=== PATIENT | female | born 1945 | race Caucasian/White ===

== ENCOUNTER 2019-04-29 13:58 | Inpatient (IN) ==
[2019-04-29 14:49] LABS: Basophils % 0.1 % (0.0-0.8); Eosinophils % 0.2 % (0.00-10.9); Hematocrit 35.1 VOL% (35.7-47.0); Hemoglobin 11.7 GM/DL (12.0-16.0); Immature Granulocytes % 0.8 %; Immature Granulocytes Absolute 0.08 #; Lymphocytes % 9.5 % (21.3-54.2); Mean Corpuscular HGB Conc 33.3 GM/DL (32-36); Mean Corpuscular Volume 86.7 FL (87-102); Mean Platelet Volume 9.9 FL (9.6-12.0); Monocytes % 6.7 % (1.7-12.7); Neutrophils % 82.7 % (38.7-73.9); Platelet Count 328 T/CUMM (130-400); Red Blood Count 4.05 MC/CUMM (3.8-5.5); Red Cell Distribution Width 13.2 % (9.3-17.3)
[2019-04-29 15:01] LABS: INR 0.9; PT Patient Result 9.8 SECS (9.6-12.2)
[2019-04-29 15:14] LABS: Bilirubin,Total 0.8 MG/DL (0.2-1.0); CKMB % 1.4 %; Calcium 10.1 MG/DL (8.5-10.1); Osmolality,Calculated 255.4 MOS/KG (273-304); Total Protein 7.4 G/DL (6.4-8.3); Troponin I 0.023 NG/ML (0.00-0.045)
[2019-04-29] MEDS ORDERED: FUROSEMIDE 40 MG/4 ML VIAL ONE (16:24)
[2019-04-29] MEDS ORDERED: FUROSEMIDE 20 MG/2 ML VIAL ONE (16:24)
[2019-04-29] MEDS ORDERED: LORazepam 2 MG/1 ML VIAL ONE (16:25)
[2019-04-29] MEDS ORDERED: LORazepam 2 MG/1 ML VIAL IV STA (17:08)
[2019-04-29] MEDS ORDERED: FUROSEMIDE 40 MG/4 ML VIAL IV STA (17:09)
[2019-04-29] MEDS: busPIRone 10 MG TABLET PO SCH (20:59)
[2019-04-29] MEDS: SIMVASTATIN 40 MG TABLET PO SCH (20:59)
[2019-04-29] MEDS: traZODone 50 MG TABLET PO SCH (20:59)
[2019-04-29] MEDS: PANTOPRAZOLE 40 MG TABLET PO SCH (21:00)
[2019-04-29] MEDS: MIRTAZAPINE 30 MG TABLET PO SCH (21:00)
[2019-04-29] MEDS: ENOXAPARIN 30 MG/0.3 ML SYRINGE SUBCUT SCH (21:02)
[2019-04-29] MEDS: POTASSIUM CHLORIDE 20 MEQ TABLET PO SCH (21:04)
[2019-04-30] MEDS: POTASSIUM CHLORIDE 20 MEQ TABLET PO SCH ×2 (00:25→04:39)
[2019-04-30 03:19] LABS: Apearance,Urine Slightly Hazy (Clear); Bacteria,Urine Occasional /HPF (Few); Bilirubin,Urine Negative (Negative); Blood, Urine Small mg/dL (Negative); Glucose,Urine (UA) Negative (Negative); Hyaline Casts,Urine 40 /LPF (0-3); Ketones,Urine Negative (Negative); Mucus,Urine Occasional /LPF (Occasional); Nitrite,Urine Negative (Negative); Protein,Urine Negative; RBC,Urine 2 /HPF (0-4); Squamous Epithelial Cell,Urine Occasional /HPF (0-10); Urine Color Yellow (Yellow); Urine Specific Gravity 1.009 (1.001-1.035); Urine Urobilinogen < 2.0 EU/DL (0.2-1.0); WBC,Urine 42 /HPF (0-6)
[2019-04-30 05:14] LABS: Calcium 9.4 MG/DL (8.5-10.1); Osmolality,Calculated 257.4 MOS/KG (273-304); Troponin I 0.031 NG/ML (0.00-0.045)
[2019-04-30] MEDS: LEVOTHYROXINE 100 MCG TABLET PO SCH (06:27)
[2019-04-30] MEDS ORDERED: ASPIRIN EC 81 MG TABLET PO SCH (09:00)
[2019-04-30] MEDS ORDERED: SERTRALINE 100 MG TABLET PO SCH (09:00)
[2019-04-30] MEDS ORDERED: LORazepam 2 MG/1 ML VIAL IV ONE (09:20)
[2019-04-30] MEDS ORDERED: SODIUM CHLORIDE 0.9% 1,000 ML IV SCH (09:30)
[2019-04-30] MEDS: CYANOCOBALAMIN 500 MCG TABLET PO SCH (09:38)
[2019-04-30] MEDS: PANTOPRAZOLE 40 MG TABLET PO SCH ×2 (09:38→21:02)
[2019-04-30] MEDS: CHOLECALCIFEROL 1,000 UNIT TABLET PO SCH (09:38)
[2019-04-30] MEDS: busPIRone 10 MG TABLET PO SCH ×3 (09:38→21:00)
[2019-04-30] MEDS: DILTIAZEM CD 240 MG CAPSULE PO SCH (09:39)
[2019-04-30] MEDS: MAGNESIUM OXIDE 400 MG TABLET PO SCH (09:39)
[2019-04-30] MEDS: clonazePAM 0.5 MG TABLET PO SCH ×2 (09:47→21:01)
[2019-04-30] MEDS ORDERED: DEXTROSE 50% 25 GM/50 ML VIAL IV PRN (09:53)
[2019-04-30] MEDS ORDERED: GLUCAGON 1 MG VIAL IM PRN (09:53)
[2019-04-30 12:10] LABS: ABG Base Excess -1.4 MMOL/L (-2.5-2.5); ABG HCO3 20.7 MMOL/L (20-26); ABG Oxygen Saturation 98.8 % (95-100); ABG PCO2 26.9 MM HG (35-48); ABG PH 7.504 (7.35-7.45); ABG PO2 185.5 MM HG (80-95); ABG TCO2 21.5 MMOL/L (23-27)
[2019-04-30] MEDS: ASPIRIN EC 325 MG TABLET PO SCH (13:40)
[2019-04-30] MEDS: INSULIN LISPRO 100 UNIT/ML SUBCUT SCH ×3 (13:42→21:02)
[2019-04-30] MEDS: ALBUTEROL/IPRATROPIUM 3 ML NEB RESP TX SCH ×2 (14:19→19:50)
[2019-04-30] MEDS: traZODone 50 MG TABLET PO SCH (21:00)
[2019-04-30] MEDS: ENOXAPARIN 30 MG/0.3 ML SYRINGE SUBCUT SCH (21:00)
[2019-04-30] MEDS: MIRTAZAPINE 30 MG TABLET PO SCH (21:02)
[2019-04-30] MEDS: SIMVASTATIN 40 MG TABLET PO SCH (21:02)
[2019-05-01] MEDS: ALBUTEROL/IPRATROPIUM 3 ML NEB RESP TX SCH ×4 (00:05→20:03)
[2019-05-01 05:27] LABS: Basophils % 0.3 % (0.0-0.8); Eosinophils # 0.1 10*3/uL (0.0-0.87); Eosinophils % 1.5 % (0.00-10.9); Hematocrit 31.8 VOL% (35.7-47.0); Hemoglobin 10.4 GM/DL (12.0-16.0); Immature Granulocytes % 0.8 %; Immature Granulocytes Absolute 0.06 #; Lymphocytes # 1.4 10*3/uL (1.4-4.0); Mean Corpuscular HGB Conc 32.7 GM/DL (32-36); Mean Corpuscular Volume 87.8 FL (87-102); Monocytes % 11.8 % (1.7-12.7); Neutrophils % 67.6 % (38.7-73.9); Platelet Count 278 T/CUMM (130-400); Red Blood Count 3.62 MC/CUMM (3.8-5.5); Red Cell Distribution Width 13.4 % (9.3-17.3); White Blood Count 7.9 T/CUMM (4-12)
[2019-05-01 05:52] LABS: Calcium 9.4 MG/DL (8.5-10.1); Osmolality,Calculated 265.1 MOS/KG (273-304)
[2019-05-01] MEDS: LEVOTHYROXINE 100 MCG TABLET PO SCH (06:00)
[2019-05-01] MEDS: CYANOCOBALAMIN 500 MCG TABLET PO SCH (09:04)
[2019-05-01] MEDS: ASPIRIN EC 325 MG TABLET PO SCH (09:04)
[2019-05-01] MEDS: busPIRone 10 MG TABLET PO SCH ×3 (09:04→20:39)
[2019-05-01] MEDS: PANTOPRAZOLE 40 MG TABLET PO SCH ×2 (09:04→20:40)
[2019-05-01] MEDS: CHOLECALCIFEROL 1,000 UNIT TABLET PO SCH (09:04)
[2019-05-01] MEDS: MAGNESIUM OXIDE 400 MG TABLET PO SCH (09:04)
[2019-05-01] MEDS: clonazePAM 0.5 MG TABLET PO SCH ×2 (09:04→20:39)
[2019-05-01] MEDS: DILTIAZEM CD 240 MG CAPSULE PO SCH (09:04)
[2019-05-01] MEDS: SODIUM CHLORIDE 0.9% 1,000 ML IV SCH ×2 (11:13→20:44)
[2019-05-01] MEDS: MIRTAZAPINE 30 MG TABLET PO SCH (20:39)
[2019-05-01] MEDS: ENOXAPARIN 30 MG/0.3 ML SYRINGE SUBCUT SCH (20:39)
[2019-05-01] MEDS: traZODone 50 MG TABLET PO SCH (20:39)
[2019-05-01] MEDS: SIMVASTATIN 40 MG TABLET PO SCH (20:40)
[2019-05-01] MEDS ORDERED: OXYMETAZOLINE 0.05% NASAL SPRAY 15 ML BOTTLE BOTH NARES PRN (20:56)
[2019-05-02] MEDS: ALBUTEROL/IPRATROPIUM 3 ML NEB RESP TX SCH ×2 (01:01→07:30)
[2019-05-02] MEDS: SODIUM CHLORIDE 0.9% 1,000 ML IV SCH (05:52)
[2019-05-02 06:09] LABS: Basophils % 0.5 % (0.0-0.8); Eosinophils # 0.3 10*3/uL (0.0-0.87); Eosinophils % 5.2 % (0.00-10.9); Hematocrit 29.6 VOL% (35.7-47.0); Hemoglobin 9.8 GM/DL (12.0-16.0); Immature Granulocytes % 0.8 %; Immature Granulocytes Absolute 0.05 #; Lymphocytes # 1.3 10*3/uL (1.4-4.0); Lymphocytes % 21.8 % (21.3-54.2); Mean Corpuscular HGB Conc 33.1 GM/DL (32-36); Mean Corpuscular Volume 89.7 FL (87-102); Mean Platelet Volume 10.8 FL (9.6-12.0); Monocytes % 13.1 % (1.7-12.7); Neutrophils % 58.6 % (38.7-73.9); Platelet Count 231 T/CUMM (130-400); Red Cell Distribution Width 13.6 % (9.3-17.3)
[2019-05-02] MEDS: LEVOTHYROXINE 100 MCG TABLET PO SCH (06:19)
[2019-05-02 06:36] LABS: Calcium 8.6 MG/DL (8.5-10.1); Osmolality,Calculated 272.4 MOS/KG (273-304)
[2019-05-02] MEDS: busPIRone 10 MG TABLET PO SCH (08:44)
[2019-05-02] MEDS: CHOLECALCIFEROL 1,000 UNIT TABLET PO SCH (08:44)
[2019-05-02] MEDS: MAGNESIUM OXIDE 400 MG TABLET PO SCH (08:44)
[2019-05-02] MEDS: ASPIRIN EC 325 MG TABLET PO SCH (08:44)
[2019-05-02] MEDS: clonazePAM 0.5 MG TABLET PO SCH (08:44)
[2019-05-02] MEDS: CYANOCOBALAMIN 500 MCG TABLET PO SCH (08:44)
[2019-05-02] MEDS: DILTIAZEM CD 240 MG CAPSULE PO SCH (08:45)
[2019-05-02] MEDS: PANTOPRAZOLE 40 MG TABLET PO SCH (08:45)
[2019-05-02 12:16] VITALS: BP 159/81
== END 2019-05-02 13:45 | disposition home or self-care (01) | DRG 880 ==
LOC: N.ED 13:58 → N.EDINP 17:18 → SUATTDRO 17:18 → N.EDINP 18:37 → N.5E 18:46
PROVIDERS: ADMIT Internal Medicine Cardiovascular Disease; ATTEND Internal Medicine

== ENCOUNTER 2020-06-04 18:38 | Inpatient (IN) ==
[2020-06-04] MEDS ORDERED: LACTATED RINGERS 500 ML IV ONE (19:38)
[2020-06-04 20:06] LABS: Basophils % 0.2 % (0.0-0.8); Hematocrit 33.1 VOL% (35.7-47.0); Immature Granulocytes % 0.6 %; Immature Granulocytes Absolute 0.08 #; Lymphocytes # 1.9 10*3/uL (1.4-4.0); Lymphocytes % 14.1 % (21.3-54.2); Mean Corpuscular HGB Conc 33.2 GM/DL (32-36); Mean Corpuscular Volume 91.9 FL (87-102); Mean Platelet Volume 10.8 FL (9.6-12.0); Monocytes % 5.7 % (1.7-12.7); Neutrophils % 79.4 % (38.7-73.9); Platelet Count 217 T/CUMM (130-400); Red Cell Distribution Width 12.9 % (9.3-17.3); White Blood Count 13.1 T/CUMM (4-12)
[2020-06-04 20:15] LABS: INR 1.1
[2020-06-04 20:26] LABS: Albumin 3.5 G/DL (3.4-5.0); Bilirubin,Total 0.6 MG/DL (0.2-1.0); Calcium 11.4 MG/DL (8.5-10.1); Osmolality,Calculated 295.5 MOS/KG (273-304); Thyroid Stimulating Hormone 0.755 uIU/ml (0.358-3.74); Total Protein 6.9 G/DL (6.4-8.3)
[2020-06-04 20:40] LABS: Bilirubin,Urine Negative (Negative); Blood, Urine Negative (Negative); Glucose,Urine (UA) Negative (Negative); Hyaline Casts,Urine 4 /LPF (0-3); Ketones,Urine Negative (Negative); Nitrite,Urine Negative (Negative); Protein,Urine Negative; RBC,Urine <1 /HPF (0-4); Squamous Epithelial Cell,Urine Occasional /HPF (0-10); Urine Appearance Slightly Hazy (Clear); Urine Color Yellow (Yellow); Urine Specific Gravity 1.019 (1.001-1.035); Urine Urobilinogen < 2.0 EU/DL (0.2-1.0); WBC,Urine 2 /HPF (0-6)
[2020-06-04] MEDS ORDERED: METOPROLOL TARTRATE 5 MG/5 ML VIAL IV STA (21:41)
[2020-06-04] MEDS ORDERED: DILTIAZEM 50 MG/10 ML VIAL IV STA (21:42)
[2020-06-04 22:35] LABS: ABG Base Excess 0.1 MMOL/L (-2.5-2.5); ABG HCO3 24.5 MMOL/L (20-26); ABG PCO2 25.7 MM HG (35-48); ABG PH 7.534 (7.35-7.45); ABG PO2 90.9 MM HG (80-95); ABG TCO2 19.5 MMOL/L (23-27); Allen Test Positive; Pt O2 Delivery Device Room Air
[2020-06-04] MEDS ORDERED: LORazepam 2 MG/1 ML VIAL IV STA (23:09)
[2020-06-04] MEDS ORDERED: NICOTINE 21 MG/24 HR PATCH TRANSDERM PRN (23:34)
[2020-06-04] MEDS ORDERED: diphenhydrAMINE CAP 25 MG CAPSULE PO PRN (23:34)
[2020-06-04] MEDS ORDERED: GLUCAGON 1 MG VIAL IM PRN (23:34)
[2020-06-04] MEDS ORDERED: ONDANSETRON 4 MG/2 ML VIAL IV PRN (23:34)
[2020-06-04] MEDS ORDERED: ACETAMINOPHEN 325 MG TABLET PO PRN (23:34)
[2020-06-04] MEDS ORDERED: DEXTROSE 50% 25 GM/50 ML VIAL IV PRN (23:34)
[2020-06-04] MEDS ORDERED: guaiFENesin/DM ER 600-30 MG TABLET PO PRN (23:34)
[2020-06-04] MEDS ORDERED: SODIUM CHLORIDE 0.9% 1,000 ML IV SCH (23:45)
[2020-06-05] MEDS: OLANZapine 10 MG VIAL IM PRN (00:52)
[2020-06-05] MEDS ORDERED: OLANZapine 10 MG VIAL IM ONE (04:25)
[2020-06-05] MEDS ORDERED: ZIPRASIDONE 20 MG/1 ML VIAL IM ONE (04:27)
[2020-06-05 05:25] LABS: Albumin 3.2 G/DL (3.4-5.0); Bilirubin,Total 0.4 MG/DL (0.2-1.0); Calcium 10.1 MG/DL (8.5-10.1); Osmolality,Calculated 300.1 MOS/KG (273-304); Total Protein 6.2 G/DL (6.4-8.3)
[2020-06-05] MEDS ORDERED: DILTIAZEM 50 MG/10 ML VIAL IV ONE (08:03)
[2020-06-05] MEDS ORDERED: DILTIAZEM 25 MG/5 ML VIAL IV ONE (08:03)
[2020-06-05] MEDS ORDERED: carvediloL 3.125 MG TABLET PO SCH (09:00)
[2020-06-05] MEDS ORDERED: HALOPERIDOL 5 MG/ML AMP IV STA (09:33)
[2020-06-05] MEDS ORDERED: LORazepam 2 MG/1 ML VIAL IV STA ×2 (09:34→10:41)
[2020-06-05] MEDS ORDERED: diphenhydrAMINE 50 MG/1 ML VIAL IV STA ×2 (09:34→10:41)
[2020-06-05] MEDS ORDERED: LORazepam 2 MG/1 ML VIAL ONE (09:39)
[2020-06-05] MEDS ORDERED: HALOPERIDOL 5 MG/ML AMP ONE (09:39)
[2020-06-05] MEDS ORDERED: diphenhydrAMINE 50 MG/1 ML VIAL ONE ×2 (09:40→10:44)
[2020-06-05] MEDS ORDERED: DEXT 5% NACL 0.45% KCL 20 MEQ 20 MEQ/1,000 ML BAG IV ONE (10:27)
[2020-06-05] MEDS: DEXT 5% NACL 0.45% KCL 20 MEQ 20 MEQ/1,000 ML BAG IV SCH (10:31)
[2020-06-05] MEDS: POTASSIUM CHLORIDE 20 MEQ TABLET PO SCH (10:42)
[2020-06-05] MEDS: MAGNESIUM OXIDE 400 MG TABLET PO SCH (10:42)
[2020-06-05] MEDS: ASPIRIN EC 81 MG TABLET PO SCH (10:42)
[2020-06-05] MEDS: amLODIPine 5 MG TABLET PO SCH (10:43)
[2020-06-05] MEDS: PANTOPRAZOLE 40 MG TABLET PO SCH ×2 (10:43→21:18)
[2020-06-05] MEDS ORDERED: METOCLOPRAMIDE 10 MG/2 ML VIAL IV STA (13:36)
[2020-06-05] MEDS: cilostazoL 50 MG TABLET PO SCH ×2 (13:54→21:18)
[2020-06-05] MEDS: SERTRALINE 100 MG TABLET PO SCH (13:55)
[2020-06-05] MEDS: LEVOTHYROXINE 100 MCG TABLET PO SCH (13:55)
[2020-06-05] MEDS ORDERED: cefTRIAXone 1,000 MG VIAL ONE (14:13)
[2020-06-05] MEDS ORDERED: METOCLOPRAMIDE 10 MG/2 ML VIAL ONE (14:13)
[2020-06-05] MEDS: cefTRIAXone 1,000 MG in SYRINGE 1 EACH IV SCH (14:18)
[2020-06-05 15:03] LABS: Free T4 (Free Thyroxine) 0.96 NG/DL (0.76-1.46)
[2020-06-05] MEDS: MONTELUKAST 10 MG TABLET PO SCH (21:17)
[2020-06-05] MEDS: SIMVASTATIN 40 MG TABLET PO SCH (21:18)
[2020-06-05] MEDS: CLORAZEPATE 3.75 MG TABLET PO SCH (21:18)
[2020-06-06] MEDS: DEXT 5% NACL 0.45% KCL 20 MEQ 20 MEQ/1,000 ML BAG IV SCH ×2 (03:04→17:11)
[2020-06-06 06:01] LABS: Basophils % 0.3 % (0.0-0.8); Eosinophils # 0.2 10*3/uL (0.0-0.87); Eosinophils % 1.7 % (0.00-10.9); Hematocrit 26.7 VOL% (35.7-47.0); Hemoglobin 8.7 GM/DL (12.0-16.0); Immature Granulocytes % 0.5 %; Immature Granulocytes Absolute 0.06 #; Lymphocytes # 1.3 10*3/uL (1.4-4.0); Lymphocytes % 10.9 % (21.3-54.2); Mean Corpuscular HGB Conc 32.6 GM/DL (32-36); Mean Corpuscular Volume 93.7 FL (87-102); Mean Platelet Volume 10.7 FL (9.6-12.0); Monocytes % 9.7 % (1.7-12.7); Neutrophils % 76.9 % (38.7-73.9); Platelet Count 130 T/CUMM (130-400); Red Blood Count 2.85 MC/CUMM (3.8-5.5); Red Cell Distribution Width 13.2 % (9.3-17.3); White Blood Count 11.5 T/CUMM (4-12)
[2020-06-06 06:21] LABS: Calcium 8.7 MG/DL (8.5-10.1)
[2020-06-06] MEDS: amLODIPine 5 MG TABLET PO SCH ×2 (07:45→09:29)
[2020-06-06] MEDS: ASPIRIN EC 81 MG TABLET PO SCH ×2 (07:45→09:27)
[2020-06-06] MEDS ORDERED: POTASSIUM CHLORIDE 20 MEQ TABLET PO ONE (08:15)
[2020-06-06] MEDS ORDERED: MAGNESIUM SULF RIDER 2 GM in PREMIX 1 EACH IV ONE (08:15)
[2020-06-06] MEDS: CHOLECALCIFEROL 1,000 UNIT TABLET PO SCH (09:28)
[2020-06-06] MEDS: SERTRALINE 100 MG TABLET PO SCH (09:28)
[2020-06-06] MEDS: CLORAZEPATE 3.75 MG TABLET PO SCH ×4 (09:28→21:04)
[2020-06-06] MEDS: PANTOPRAZOLE 40 MG TABLET PO SCH ×2 (09:29→21:03)
[2020-06-06] MEDS: MAGNESIUM OXIDE 400 MG TABLET PO SCH (09:29)
[2020-06-06] MEDS: LEVOTHYROXINE 100 MCG TABLET PO SCH (09:29)
[2020-06-06] MEDS: CYANOCOBALAMIN 500 MCG TABLET PO SCH (09:30)
[2020-06-06] MEDS: cilostazoL 50 MG TABLET PO SCH ×2 (09:35→21:04)
[2020-06-06] MEDS: POTASSIUM CHLORIDE 20 MEQ TABLET PO SCH (09:36)
[2020-06-06] MEDS: carvediloL 6.25 MG TABLET PO SCH ×2 (14:10→21:04)
[2020-06-06] MEDS: cefTRIAXone 1,000 MG in SYRINGE 1 EACH IV SCH (14:11)
[2020-06-06] MEDS: SIMVASTATIN 40 MG TABLET PO SCH (21:03)
[2020-06-06] MEDS: CARBIDOPA/LEVODOPA 25-100 MG TABLET PO SCH (21:03)
[2020-06-06] MEDS: MONTELUKAST 10 MG TABLET PO SCH (21:04)
[2020-06-07 06:53] LABS: Basophils % 0.4 % (0.0-0.8); Eosinophils # 0.2 10*3/uL (0.0-0.87); Eosinophils % 2.1 % (0.00-10.9); Hematocrit 25.7 VOL% (35.7-47.0); Hemoglobin 8.1 GM/DL (12.0-16.0); Immature Granulocytes % 0.2 %; Immature Granulocytes Absolute 0.02 #; Lymphocytes # 1.5 10*3/uL (1.4-4.0); Lymphocytes % 18.6 % (21.3-54.2); Mean Corpuscular HGB Conc 31.5 GM/DL (32-36); Mean Corpuscular Volume 98.8 FL (87-102); Mean Platelet Volume 10.9 FL (9.6-12.0); Monocytes % 9.2 % (1.7-12.7); Neutrophils % 69.5 % (38.7-73.9); Platelet Count 125 T/CUMM (130-400); Red Cell Distribution Width 13.3 % (9.3-17.3); White Blood Count 8.1 T/CUMM (4-12)
[2020-06-07 07:17] LABS: Calcium 8.7 MG/DL (8.5-10.1); Osmolality,Calculated 279.5 MOS/KG (273-304)
[2020-06-07 07:39] LABS: % Iron Saturation 9.1 % (18-50); Ferritin 20.6 ng/ml (8-252)
[2020-06-07 08:12] LABS: Folate > 24.0 NG/ML (5.4-24.0); Vitamin B12 903 PG/ML (211-911)
[2020-06-07] MEDS: ASPIRIN EC 81 MG TABLET PO SCH (09:56)
[2020-06-07] MEDS: CHOLECALCIFEROL 1,000 UNIT TABLET PO SCH (09:56)
[2020-06-07] MEDS: LEVOTHYROXINE 100 MCG TABLET PO SCH (09:56)
[2020-06-07] MEDS: SERTRALINE 100 MG TABLET PO SCH (09:56)
[2020-06-07] MEDS: CARBIDOPA/LEVODOPA 25-100 MG TABLET PO SCH ×3 (09:56→21:00)
[2020-06-07] MEDS: POTASSIUM CHLORIDE 20 MEQ TABLET PO SCH (09:56)
[2020-06-07] MEDS: PANTOPRAZOLE 40 MG TABLET PO SCH ×2 (09:56→21:00)
[2020-06-07] MEDS: MAGNESIUM OXIDE 400 MG TABLET PO SCH (09:56)
[2020-06-07] MEDS: carvediloL 6.25 MG TABLET PO SCH (09:57)
[2020-06-07] MEDS: cilostazoL 50 MG TABLET PO SCH ×2 (09:57→21:00)
[2020-06-07] MEDS: CLORAZEPATE 3.75 MG TABLET PO SCH ×4 (09:57→21:00)
[2020-06-07] MEDS: CYANOCOBALAMIN 500 MCG TABLET PO SCH (09:57)
[2020-06-07] MEDS: amLODIPine 5 MG TABLET PO SCH (09:57)
[2020-06-07] MEDS ORDERED: MAGNESIUM HYDROXIDE SUSP 30 ML UDCUP PO ONE (10:58)
[2020-06-07] MEDS ORDERED: IRON SUCROSE 300 MG in SODIUM CHLORIDE 0.9% 100 ML IV ONE (11:00)
[2020-06-07] MEDS: DEXT 5% NACL 0.45% KCL 20 MEQ 20 MEQ/1,000 ML BAG IV SCH (11:01)
[2020-06-07] MEDS ORDERED: carvediloL 6.25 MG TABLET PO ONE (11:02)
[2020-06-07] MEDS: cefTRIAXone 1,000 MG in SYRINGE 1 EACH IV SCH (14:35)
[2020-06-07] MEDS: carvediloL 12.5 MG TABLET PO SCH (20:59)
[2020-06-07] MEDS: FERROUS SULFATE 325 MG TABLET PO SCH (20:59)
[2020-06-07] MEDS: SIMVASTATIN 40 MG TABLET PO SCH (21:00)
[2020-06-07] MEDS: MONTELUKAST 10 MG TABLET PO SCH (21:00)
[2020-06-08] MEDS: OLANZapine 10 MG VIAL IM PRN (02:01)
[2020-06-08] MEDS: DEXT 5% NACL 0.45% KCL 20 MEQ 20 MEQ/1,000 ML BAG IV SCH (02:48)
[2020-06-08 05:59] LABS: Basophils % 0.6 % (0.0-0.8); Eosinophils # 0.3 10*3/uL (0.0-0.87); Eosinophils % 3.9 % (0.00-10.9); Hematocrit 24.7 VOL% (35.7-47.0); Immature Granulocytes % 0.8 %; Immature Granulocytes Absolute 0.06 #; Lymphocytes # 1.7 10*3/uL (1.4-4.0); Lymphocytes % 22.7 % (21.3-54.2); Mean Corpuscular HGB Conc 32.4 GM/DL (32-36); Mean Corpuscular Volume 96.5 FL (87-102); Mean Platelet Volume 11.8 FL (9.6-12.0); Monocytes % 10.7 % (1.7-12.7); NRBC # 0.02 10*3/uL; Neutrophils % 61.3 % (38.7-73.9); Platelet Count 128 T/CUMM (130-400); Red Blood Count 2.56 MC/CUMM (3.8-5.5); Red Cell Distribution Width 13.4 % (9.3-17.3); White Blood Count 7.3 T/CUMM (4-12)
[2020-06-08 06:34] LABS: Calcium 9.1 MG/DL (8.5-10.1); Osmolality,Calculated 281.3 MOS/KG (273-304)
[2020-06-08 06:45] LABS: Risk Ratio 2.16; VLDL CHOLESTEROL 23.6 MG/DL
[2020-06-08] MEDS: ASPIRIN EC 81 MG TABLET PO SCH (09:23)
[2020-06-08] MEDS: cilostazoL 50 MG TABLET PO SCH (09:27)
[2020-06-08] MEDS: SERTRALINE 100 MG TABLET PO SCH (09:27)
[2020-06-08] MEDS: MAGNESIUM OXIDE 400 MG TABLET PO SCH (09:27)
[2020-06-08] MEDS: PANTOPRAZOLE 40 MG TABLET PO SCH (09:27)
[2020-06-08] MEDS: CHOLECALCIFEROL 1,000 UNIT TABLET PO SCH (09:27)
[2020-06-08] MEDS: POTASSIUM CHLORIDE 20 MEQ TABLET PO SCH (09:27)
[2020-06-08] MEDS: CARBIDOPA/LEVODOPA 25-100 MG TABLET PO SCH (09:28)
[2020-06-08] MEDS: FERROUS SULFATE 325 MG TABLET PO SCH (09:28)
[2020-06-08] MEDS: amLODIPine 5 MG TABLET PO SCH (09:28)
[2020-06-08] MEDS: LEVOTHYROXINE 100 MCG TABLET PO SCH (09:28)
[2020-06-08] MEDS: carvediloL 12.5 MG TABLET PO SCH (09:28)
[2020-06-08] MEDS: CLORAZEPATE 3.75 MG TABLET PO SCH ×2 (09:28→12:12)
[2020-06-08] MEDS: CYANOCOBALAMIN 500 MCG TABLET PO SCH (09:28)
[2020-06-08 12:10] VITALS: BP 116/73
== END 2020-06-08 14:59 | disposition home health service (06) | DRG 56 ==
LOC: EDUNIT# → EDBD → N.ED 18:38 → N.EDINP 23:34 → N.TELEN 06-05 17:48
PROVIDERS: ADMIT Hospitalist; ATTEND Hospitalist

== ENCOUNTER 2020-11-14 18:17 | Inpatient (IN) ==
[2020-11-14] MEDS ORDERED: SODIUM CHLORIDE 0.9% 1,000 ML IV STA ×2 (19:32→21:48)
[2020-11-14] MEDS ORDERED: LORazepam 2 MG/1 ML VIAL IV STA (19:32)
[2020-11-14 19:56] LABS: Alanine Aminotransferase 16 U/L (13-56); Albumin 3.9 G/DL (3.4-5.0); Alkaline Phosphatase 103 U/L (45-117); Aspartate Amino Transferase 30 U/L (0-37); Blood Urea Nitrogen 24 MG/DL (7-18); Calcium 10.4 MG/DL (8.5-10.1); Carbon Dioxide 21 MMOL/L (21-32); Estimated Glom Filtration Rate 38 ML/MIN; Glucose 108 MG/DL (74-106); Osmolality,Calculated 274.1 MOS/KG (273-304); Potassium 3.5 MMOL/L (3.5-5.1); Sodium 135 MMOL/L (136-145); Total Protein 8.3 G/DL (5.0-7.5)
[2020-11-14 20:00] LABS: Basophils % 0.3 % (0.0-0.8); Eosinophils % 0.1 % (0.00-10.9); Hematocrit 36.7 VOL% (35.7-47.0); Hemoglobin 12.2 GM/DL (12.0-16.0); Immature Granulocytes % 0.3 %; Immature Granulocytes Absolute 0.03 #; Lymphocytes # 1.1 10*3/uL (1.4-4.0); Lymphocytes % 12.2 % (21.3-54.2); Mean Corpuscular HGB Conc 33.2 GM/DL (32-36); Mean Corpuscular Volume 89.3 FL (87-102); Mean Platelet Volume 11.4 FL (9.6-12.0); Monocytes % 11.2 % (1.7-12.7); Neutrophils % 75.9 % (38.7-73.9); Platelet Count 252 T/CUMM (130-400); Red Blood Count 4.11 MC/CUMM (3.8-5.5); Red Cell Distribution Width 13.7 % (9.3-17.3); White Blood Count 9.2 T/CUMM (4-12)
[2020-11-14 20:18] LABS: PT Patient Result 10.7 SECS (9.8-11.9)
[2020-11-14 20:20] LABS: Barbiturates Screen,Urine Negative (Negative); Benzodiazepines Screen,Urine Positive (Negative); Cannabinoid Screen,Urine Negative (Negative); Opiate Screen,Urine Negative (Negative); Partial Thromboplastin Time < 20.0 SECS (23.9-33.8); Phencyclidine Screen,Urine Negative (Negative)
[2020-11-14 20:29] LABS: Amorphous Crystals,Urine Occasional /HPF (Few); Bacteria,Urine Occasional /HPF (Few); Bilirubin,Urine Negative (Negative); Blood, Urine Small mg/dL (Negative); Glucose,Urine (UA) Negative (Negative); Ketones,Urine 5 mg/dL (Negative); Mucus,Urine Occasional /LPF (Occasional); Nitrite,Urine Negative (Negative); Protein,Urine 100 MG/DL; RBC,Urine 2 /HPF (0-4); Squamous Epithelial Cell,Urine Occasional /HPF (0-10); Urine Appearance Slightly Hazy (Clear); Urine Color Yellow (Yellow); Urine Specific Gravity 1.013 (1.001-1.035); Urine Urobilinogen < 2.0 EU/DL (0.2-1.0); WBC,Urine 3 /HPF (0-6)
[2020-11-14] MEDS ORDERED: hydrALAZINE 20 MG/1 ML VIAL IV PRN (22:07)
[2020-11-14] MEDS ORDERED: ONDANSETRON 4 MG/2 ML VIAL IV PRN (22:07)
[2020-11-14] MEDS ORDERED: DEXTROSE 50% 25 GM/50 ML VIAL IV PRN (22:07)
[2020-11-14] MEDS ORDERED: GLUCAGON 1 MG VIAL IM PRN (22:07)
[2020-11-14] MEDS ORDERED: HYDROmorphone 2 MG/1 ML VIAL IV STA (23:11)
[2020-11-14] MEDS ORDERED: HALOPERIDOL 5 MG/ML AMP IV STA (23:11)
[2020-11-14] MEDS ORDERED: HYDROmorphone 2 MG/1 ML VIAL ONE (23:12)
[2020-11-14] MEDS ORDERED: HALOPERIDOL 5 MG/ML AMP ONE (23:12)
[2020-11-15] MEDS ORDERED: METOPROLOL TARTRATE 5 MG/5 ML VIAL IV ONE (00:52)
[2020-11-15] MEDS: SODIUM CHLORIDE 0.9% 1,000 ML IV SCH ×4 (01:35→22:00)
[2020-11-15] MEDS: ENOXAPARIN 80 MG/0.8 ML SYRINGE SUBCUT SCH ×3 (01:35→23:36)
[2020-11-15] MEDS ORDERED: HALOPERIDOL 5 MG/ML AMP IV PRN (02:59)
[2020-11-15] MEDS: HALOPERIDOL 5 MG/ML AMP IV PRN ×3 (03:08→23:36)
[2020-11-15] MEDS: HYDROmorphone 2 MG/1 ML VIAL IV PRN ×2 (03:09→10:30)
[2020-11-15 04:20] LABS: Basophils % 0.3 % (0.0-0.8); Eosinophils % 0.3 % (0.00-10.9); Hematocrit 32.2 VOL% (35.7-47.0); Hemoglobin 10.7 GM/DL (12.0-16.0); Immature Granulocytes % 0.1 %; Immature Granulocytes Absolute 0.01 #; Lymphocytes # 1.3 10*3/uL (1.4-4.0); Lymphocytes % 18.6 % (21.3-54.2); Mean Corpuscular HGB Conc 33.2 GM/DL (32-36); Mean Corpuscular Volume 90.2 FL (87-102); Mean Platelet Volume 10.5 FL (9.6-12.0); Monocytes % 14.3 % (1.7-12.7); Neutrophils % 66.4 % (38.7-73.9); Platelet Count 195 T/CUMM (130-400); Red Blood Count 3.57 MC/CUMM (3.8-5.5); Red Cell Distribution Width 13.4 % (9.3-17.3); White Blood Count 7.2 T/CUMM (4-12)
[2020-11-15 04:48] LABS: Calcium 8.8 MG/DL (8.5-10.1); Osmolality,Calculated 282.3 MOS/KG (273-304); Potassium 2.7 MMOL/L (3.5-5.1)
[2020-11-15 04:52] LABS: Risk Ratio 2.29
[2020-11-15] MEDS ORDERED: LORazepam 2 MG/1 ML VIAL IV STA (11:47)
[2020-11-15] MEDS ORDERED: LORazepam 2 MG/1 ML VIAL ONE (11:48)
[2020-11-15] MEDS ORDERED: POTASSIUM CHLORIDE 20 MEQ TABLET PO ONE (12:15)
[2020-11-15] MEDS ORDERED: cilostazoL 50 MG TABLET PO SCH (12:30)
[2020-11-15 13:05] LABS: CKMB % 3.4 %
[2020-11-15 13:12] LABS: Troponin I 2.66 NG/ML (0.00-0.045)
[2020-11-15] MEDS ORDERED: POTASSIUM CHLORIDE RIDER 10 MEQ in PREMIX 1 EACH IV PRN (13:43)
[2020-11-15] MEDS ORDERED: CARBIDOPA/LEVODOPA 25-100 MG TABLET PO SCH (15:00)
[2020-11-15] MEDS: CHOLECALCIFEROL 1,000 UNIT TABLET PO SCH (15:03)
[2020-11-15] MEDS: amLODIPine 5 MG TABLET PO SCH (15:04)
[2020-11-15] MEDS: ASPIRIN EC 81 MG TABLET PO SCH (15:04)
[2020-11-15] MEDS: carvediloL 12.5 MG TABLET PO SCH ×2 (15:04→21:14)
[2020-11-15] MEDS: POTASSIUM CHLORIDE 20 MEQ TABLET PO SCH (21:13)
[2020-11-15] MEDS: PANTOPRAZOLE 40 MG TABLET PO SCH (21:13)
[2020-11-15] MEDS: SIMVASTATIN 40 MG TABLET PO SCH (21:13)
[2020-11-15] MEDS: QUEtiapine 25 MG TABLET PO SCH (21:13)
[2020-11-15] MEDS: MONTELUKAST 10 MG TABLET PO SCH (21:14)
[2020-11-15] MEDS: MEMANTINE 5 MG TABLET PO SCH (21:14)
[2020-11-16 05:26] LABS: Basophils % 0.6 % (0.0-0.8); Eosinophils # 0.1 10*3/uL (0.0-0.87); Eosinophils % 1.9 % (0.00-10.9); Hematocrit 32.1 VOL% (35.7-47.0); Hemoglobin 10.4 GM/DL (12.0-16.0); Immature Granulocytes % 0.3 %; Immature Granulocytes Absolute 0.02 #; Lymphocytes # 1.5 10*3/uL (1.4-4.0); Lymphocytes % 21.8 % (21.3-54.2); Mean Corpuscular HGB Conc 32.4 GM/DL (32-36); Mean Corpuscular Volume 90.7 FL (87-102); Mean Platelet Volume 10.8 FL (9.6-12.0); Monocytes % 12.7 % (1.7-12.7); Neutrophils % 62.7 % (38.7-73.9); Platelet Count 188 T/CUMM (130-400); Red Blood Count 3.54 MC/CUMM (3.8-5.5); Red Cell Distribution Width 13.2 % (9.3-17.3); White Blood Count 6.9 T/CUMM (4-12)
[2020-11-16 05:54] LABS: Calcium 8.8 MG/DL (8.5-10.1); Osmolality,Calculated 275.4 MOS/KG (273-304)
[2020-11-16] MEDS: POTASSIUM CHLORIDE 20 MEQ TABLET PO SCH ×2 (08:44→21:03)
[2020-11-16] MEDS: ASPIRIN EC 81 MG TABLET PO SCH (08:44)
[2020-11-16] MEDS: carvediloL 12.5 MG TABLET PO SCH ×2 (08:44→21:01)
[2020-11-16] MEDS: PANTOPRAZOLE 40 MG TABLET PO SCH ×2 (08:45→21:03)
[2020-11-16] MEDS: amLODIPine 5 MG TABLET PO SCH (08:45)
[2020-11-16] MEDS: MEMANTINE 5 MG TABLET PO SCH ×2 (08:45→21:01)
[2020-11-16] MEDS: CHOLECALCIFEROL 1,000 UNIT TABLET PO SCH (08:45)
[2020-11-16] MEDS ORDERED: QUEtiapine 25 MG TABLET PO SCH ×2 (09:00→10:26)
[2020-11-16 11:36] LABS: CKMB % 2.7 %; Troponin I 2.32 NG/ML (0.00-0.045)
[2020-11-16] MEDS: ENOXAPARIN 80 MG/0.8 ML SYRINGE SUBCUT SCH (13:11)
[2020-11-16] MEDS: DESITIN 4OZ/NYSTATIN 15 GRAM MIXTURE PASTE TOP SCH ×2 (13:12→23:00)
[2020-11-16] MEDS: SODIUM CHLORIDE 0.9% 1,000 ML IV SCH ×2 (14:21→14:24)
[2020-11-16] MEDS: QUEtiapine 25 MG TABLET PO SCH (21:01)
[2020-11-16] MEDS: SIMVASTATIN 40 MG TABLET PO SCH (21:01)
[2020-11-16] MEDS: MONTELUKAST 10 MG TABLET PO SCH (21:01)
[2020-11-17] MEDS: ENOXAPARIN 80 MG/0.8 ML SYRINGE SUBCUT SCH (00:11)
[2020-11-17] MEDS: SODIUM CHLORIDE 0.9% 1,000 ML IV SCH ×2 (04:01→17:57)
[2020-11-17] MEDS: CHOLECALCIFEROL 1,000 UNIT TABLET PO SCH (08:29)
[2020-11-17] MEDS: amLODIPine 5 MG TABLET PO SCH (08:29)
[2020-11-17] MEDS: ASPIRIN EC 81 MG TABLET PO SCH (08:29)
[2020-11-17] MEDS: MEMANTINE 5 MG TABLET PO SCH ×2 (08:29→21:07)
[2020-11-17] MEDS: POTASSIUM CHLORIDE 20 MEQ TABLET PO SCH ×2 (08:30→21:09)
[2020-11-17] MEDS: PANTOPRAZOLE 40 MG TABLET PO SCH ×2 (08:30→21:09)
[2020-11-17] MEDS: carvediloL 12.5 MG TABLET PO SCH ×2 (08:31→21:07)
[2020-11-17] MEDS: DESITIN 4OZ/NYSTATIN 15 GRAM MIXTURE PASTE TOP SCH ×2 (10:25→21:16)
[2020-11-17] MEDS: ENOXAPARIN 40 MG/0.4 ML SYRINGE SUBCUT SCH (10:31)
[2020-11-17] MEDS ORDERED: TUBERCULIN SKIN TEST 0.1 ML SYRINGE INTRADERM ONE (13:56)
[2020-11-17] MEDS: MONTELUKAST 10 MG TABLET PO SCH (21:07)
[2020-11-17] MEDS: QUEtiapine 25 MG TABLET PO SCH (21:07)
[2020-11-17] MEDS: SIMVASTATIN 40 MG TABLET PO SCH (21:09)
[2020-11-18] MEDS: SODIUM CHLORIDE 0.9% 1,000 ML IV SCH (07:07)
[2020-11-18 08:48] LABS: Calcium 9.4 MG/DL (8.5-10.1); Osmolality,Calculated 275.7 MOS/KG (273-304); Potassium 3.2 MMOL/L (3.5-5.1)
[2020-11-18] MEDS ORDERED: MAGNESIUM SULF RIDER 4 GM in PREMIX 1 EACH IV PRN (09:25)
[2020-11-18] MEDS: amLODIPine 5 MG TABLET PO SCH (09:52)
[2020-11-18] MEDS: PANTOPRAZOLE 40 MG TABLET PO SCH ×2 (09:52→21:18)
[2020-11-18] MEDS: MEMANTINE 5 MG TABLET PO SCH ×2 (09:52→21:18)
[2020-11-18] MEDS: ENOXAPARIN 40 MG/0.4 ML SYRINGE SUBCUT SCH (09:52)
[2020-11-18] MEDS: CHOLECALCIFEROL 1,000 UNIT TABLET PO SCH (09:52)
[2020-11-18] MEDS: carvediloL 12.5 MG TABLET PO SCH ×2 (09:52→21:18)
[2020-11-18] MEDS: ASPIRIN EC 81 MG TABLET PO SCH (09:52)
[2020-11-18] MEDS: QUEtiapine 100 MG TABLET PO SCH (09:53)
[2020-11-18] MEDS: DESITIN 4OZ/NYSTATIN 15 GRAM MIXTURE PASTE TOP SCH ×2 (09:53→21:33)
[2020-11-18] MEDS: POTASSIUM CHLORIDE 20 MEQ TABLET PO SCH ×2 (09:53→21:18)
[2020-11-18] MEDS: MAGNESIUM SULF RIDER 2 GM in PREMIX 1 EACH IV PRN (10:03)
[2020-11-18] MEDS: MONTELUKAST 10 MG TABLET PO SCH (21:17)
[2020-11-18] MEDS: QUEtiapine 25 MG TABLET PO SCH (21:18)
[2020-11-18] MEDS: SIMVASTATIN 40 MG TABLET PO SCH (21:18)
[2020-11-19] MEDS ORDERED: TUBERCULIN SKIN TEST 0.1 ML SYRINGE INTRADERM ONE (08:18)
[2020-11-19] MEDS: SODIUM CHLORIDE 0.9% 1,000 ML IV SCH ×2 (10:18→11:37)
[2020-11-19] MEDS: QUEtiapine 100 MG TABLET PO SCH (11:06)
[2020-11-19] MEDS: ASPIRIN EC 81 MG TABLET PO SCH (11:06)
[2020-11-19] MEDS: POTASSIUM CHLORIDE 20 MEQ TABLET PO SCH ×2 (11:06→20:14)
[2020-11-19] MEDS: CHOLECALCIFEROL 1,000 UNIT TABLET PO SCH (11:06)
[2020-11-19] MEDS: carvediloL 12.5 MG TABLET PO SCH ×2 (11:06→20:14)
[2020-11-19] MEDS: amLODIPine 5 MG TABLET PO SCH (11:07)
[2020-11-19] MEDS: MEMANTINE 5 MG TABLET PO SCH ×2 (11:07→20:14)
[2020-11-19] MEDS: PANTOPRAZOLE 40 MG TABLET PO SCH ×2 (11:07→20:14)
[2020-11-19] MEDS: DESITIN 4OZ/NYSTATIN 15 GRAM MIXTURE PASTE TOP SCH ×2 (11:10→20:14)
[2020-11-19] MEDS: ENOXAPARIN 40 MG/0.4 ML SYRINGE SUBCUT SCH (11:10)
[2020-11-19] MEDS: MAGNESIUM SULF RIDER 2 GM in PREMIX 1 EACH IV PRN (11:36)
[2020-11-19] MEDS: QUEtiapine 25 MG TABLET PO SCH (20:14)
[2020-11-19] MEDS: MONTELUKAST 10 MG TABLET PO SCH (20:14)
[2020-11-19] MEDS: SIMVASTATIN 40 MG TABLET PO SCH (20:14)
[2020-11-20] MEDS: SODIUM CHLORIDE 0.9% 1,000 ML IV SCH (00:01)
[2020-11-20] MEDS: ACETAMINOPHEN 325 MG TABLET PO PRN (01:45)
[2020-11-20 06:32] LABS: Basophils % 0.4 % (0.0-0.8); Eosinophils # 0.2 10*3/uL (0.0-0.87); Eosinophils % 2.6 % (0.00-10.9); Hematocrit 34.1 VOL% (35.7-47.0); Hemoglobin 10.8 GM/DL (12.0-16.0); Immature Granulocytes % 0.1 %; Immature Granulocytes Absolute 0.01 #; Lymphocytes # 1.4 10*3/uL (1.4-4.0); Lymphocytes % 18.6 % (21.3-54.2); Mean Corpuscular HGB Conc 31.7 GM/DL (32-36); Mean Corpuscular Volume 93.4 FL (87-102); Mean Platelet Volume 11.5 FL (9.6-12.0); Monocytes % 10.2 % (1.7-12.7); Neutrophils % 68.1 % (38.7-73.9); Platelet Count 230 T/CUMM (130-400); Red Blood Count 3.65 MC/CUMM (3.8-5.5); Red Cell Distribution Width 13.2 % (9.3-17.3); White Blood Count 7.7 T/CUMM (4-12)
[2020-11-20 06:56] LABS: Bilirubin,Direct 0.26 MG/DL (0.0-0.20); Bilirubin,Total 1.3 MG/DL (0.2-1.0); Calcium 9.5 MG/DL (8.5-10.1)
[2020-11-20 06:57] LABS: Albumin 2.8 G/DL (3.4-5.0); Osmolality,Calculated 282.3 MOS/KG (273-304); Potassium 3.4 MMOL/L (3.5-5.1); Total Protein 6.2 G/DL (5.0-7.5)
[2020-11-20] MEDS: ASPIRIN EC 81 MG TABLET PO SCH (10:06)
[2020-11-20] MEDS: CHOLECALCIFEROL 1,000 UNIT TABLET PO SCH (10:06)
[2020-11-20] MEDS: ENOXAPARIN 40 MG/0.4 ML SYRINGE SUBCUT SCH (10:06)
[2020-11-20] MEDS: MEMANTINE 5 MG TABLET PO SCH ×2 (10:07→20:15)
[2020-11-20] MEDS: PANTOPRAZOLE 40 MG TABLET PO SCH ×2 (10:07→20:15)
[2020-11-20] MEDS: QUEtiapine 100 MG TABLET PO SCH (10:07)
[2020-11-20] MEDS: carvediloL 12.5 MG TABLET PO SCH ×2 (10:07→20:15)
[2020-11-20] MEDS: amLODIPine 5 MG TABLET PO SCH (10:07)
[2020-11-20] MEDS: POTASSIUM CHLORIDE 20 MEQ TABLET PO SCH ×3 (10:09→20:16)
[2020-11-20] MEDS: DESITIN 4OZ/NYSTATIN 15 GRAM MIXTURE PASTE TOP SCH ×2 (10:10→20:16)
[2020-11-20] MEDS: QUEtiapine 25 MG TABLET PO SCH (20:14)
[2020-11-20] MEDS: SIMVASTATIN 40 MG TABLET PO SCH (20:15)
[2020-11-20] MEDS: MONTELUKAST 10 MG TABLET PO SCH (20:15)
[2020-11-20] MEDS: HALOPERIDOL 5 MG/ML AMP IV PRN (20:40)
[2020-11-20] MEDS ORDERED: SERTRALINE 50 MG TABLET PO SCH (21:00)
[2020-11-21] MEDS: ACETAMINOPHEN 325 MG TABLET PO PRN (01:52)
[2020-11-21 06:16] LABS: Basophils % 0.5 % (0.0-0.8); Eosinophils # 0.2 10*3/uL (0.0-0.87); Eosinophils % 3.2 % (0.00-10.9); Hematocrit 33.4 VOL% (35.7-47.0); Hemoglobin 10.9 GM/DL (12.0-16.0); Immature Granulocytes % 0.3 %; Immature Granulocytes Absolute 0.02 #; Lymphocytes # 1.4 10*3/uL (1.4-4.0); Lymphocytes % 22.5 % (21.3-54.2); Mean Corpuscular HGB Conc 32.6 GM/DL (32-36); Mean Corpuscular Volume 90.8 FL (87-102); Mean Platelet Volume 11.7 FL (9.6-12.0); Monocytes % 11.5 % (1.7-12.7); Platelet Count 227 T/CUMM (130-400); Red Blood Count 3.68 MC/CUMM (3.8-5.5); Red Cell Distribution Width 13.1 % (9.3-17.3); White Blood Count 6.2 T/CUMM (4-12)
[2020-11-21 06:47] LABS: Albumin 2.9 G/DL (3.4-5.0); Bilirubin,Direct 0.18 MG/DL (0.0-0.20); Bilirubin,Indirect 1.4 MG/DL (0.0-1.0); Bilirubin,Total 1.6 MG/DL (0.2-1.0); Calcium 9.7 MG/DL (8.5-10.1); Osmolality,Calculated 270.1 MOS/KG (273-304); Potassium 3.9 MMOL/L (3.5-5.1); Total Protein 6.3 G/DL (5.0-7.5)
[2020-11-21] MEDS: ASPIRIN EC 81 MG TABLET PO SCH (08:35)
[2020-11-21] MEDS: MEMANTINE 5 MG TABLET PO SCH (08:35)
[2020-11-21] MEDS: CHOLECALCIFEROL 1,000 UNIT TABLET PO SCH (08:35)
[2020-11-21] MEDS: PANTOPRAZOLE 40 MG TABLET PO SCH (08:36)
[2020-11-21] MEDS: DESITIN 4OZ/NYSTATIN 15 GRAM MIXTURE PASTE TOP SCH (08:36)
[2020-11-21] MEDS: ENOXAPARIN 40 MG/0.4 ML SYRINGE SUBCUT SCH (08:36)
[2020-11-21] MEDS: POTASSIUM CHLORIDE 20 MEQ TABLET PO SCH (08:36)
[2020-11-21] MEDS: carvediloL 12.5 MG TABLET PO SCH (08:36)
[2020-11-21] MEDS: SODIUM CHLORIDE 0.9% 1,000 ML IV SCH ×2 (08:55→08:56)
[2020-11-21] MEDS ORDERED: lisinopriL 5 MG TABLET PO SCH (09:00)
[2020-11-21] MEDS: QUEtiapine 100 MG TABLET PO SCH (10:05)
[2020-11-21 12:32] VITALS: BP 104/68
== END 2020-11-21 14:38 | disposition hospice, home (50) | DRG 682 ==
LOC: N.ED 18:17 → N.EDINP 18:17 → N.TELES 21:46 → SUATTDRO 11-15 14:02
PROVIDERS: ADMIT Internal Medicine; ATTEND Internal Medicine